=== PATIENT | female | born 1970 | race Caucasian/White ===

== ENCOUNTER 2018-11-07 22:03 | Day surgery (SDC) | payer BC ==
[~2018-11-07] VITALS: Ht 154.9 cm; Wt 51.7 kg
[2018-11-08 07:41] VITALS: BP 106/67
== END 2018-11-08 09:20 | disposition home or self-care (01) ==
LOC: ED 23:59 → SDC 23:59 → UNDOADMIN 11-08 03:01 → EDIP 11-08 03:01 → 4NOR 11-08 03:40 → DCLOUNGE 11-08 09:05 → 4NOR 11-08 09:05 → SDC 11-08 09:20 → UNDODISIN 11-08 09:20
PROVIDERS: ATTEND Emergency Medicine
DX: T17.228A Food in pharynx causing other injury, initial encounter (principal); E04.1 Nontoxic single thyroid nodule; Z72.89 Other problems related to lifestyle; Z79.899 Other long term (current) drug therapy; X58.XXXA Exposure to other specified factors, initial encounter; Y93.89 Activity, other specified; Y92.89 Other specified places as the place of occurrence of the external cause; Y99.8 Other external cause status
CPT/HCPCS: 31530; 70360; 70491; J0330; J1100; J2250; J2405; J2704; J3010; J7030; Q9967